=== PATIENT | male | born 1965 | race African-American/Black ===

== ENCOUNTER 2018-09-12 15:00 | Outpatient (CLI) | payer OTHER | END 2018-09-12 15:01 | disposition home or self-care (01) | LOC: SLEEPLAB 15:00 | PROVIDERS: ATTEND Family Medicine | DX: G47.33 Obstructive sleep apnea (adult) (pediatric) (principal); R53.83 Other fatigue; R06.83 Snoring; Z68.33 Body mass index [BMI] 33.0-33.9, adult | CPT/HCPCS: 95806 ==

== ENCOUNTER 2025-05-21 14:45 | Outpatient (CLI) | payer OTHER | END 2025-05-21 14:46 | disposition home or self-care (01) | LOC: SCSMRI 14:45 | PROVIDERS: ATTEND Family Medicine | DX: R97.20 Elevated prostate specific antigen [PSA] (principal) | CPT/HCPCS: 72197; A9577 ==